=== PATIENT | female | born 1975 | race American Indian/Alaskan Native ===

== ENCOUNTER 2019-02-16 06:25 | Day surgery (SDC) | payer OTHER | END 2019-02-16 12:20 | disposition home or self-care (01) | LOC: CIR.AMB 06:25 | DX: N84.0 Polyp of corpus uteri (principal) ==

== ENCOUNTER → 2019-11-24 19:01 | Outpatient (CLI) | payer OTHER | END | disposition home or self-care (01) | LOC: LAB 19:01 | DX: D64.89 Other specified anemias (principal); E88.89 Other specified metabolic disorders; D68.8 Other specified coagulation defects; N39.0 Urinary tract infection, site not specified; Z22.322 Carrier or suspected carrier of Methicillin resistant Staphylococcus aureus; E55.9 Vitamin D deficiency, unspecified ==

== ENCOUNTER 2019-11-28 06:00 | Day surgery (SDC) | payer OTHER | END 2019-11-28 12:10 | disposition home or self-care (01) | LOC: CIR.AMB 06:00 | DX: S92.351A Displaced fracture of fifth metatarsal bone, right foot, initial encounter for closed fracture (principal) | CPT/HCPCS: 28485; C1776 ==

== ENCOUNTER 2024-11-01 09:24 | Outpatient (CLI) | payer OTHER | END 2024-11-01 09:37 | disposition home or self-care (01) | LOC: MRI 09:24 | PROVIDERS: ATTEND Orthopaedic Surgery | DX: S92.254A Nondisplaced fracture of navicular [scaphoid] of right foot, initial encounter for closed fracture (principal) ==